=== PATIENT | female | born 1950 | race Two or more races ===

== ENCOUNTER 2018-04-23 16:57 | Inpatient (IN) | payer MEDICARE, OTHER ==
[~2018-04-23] VITALS: Ht 160 cm; Wt 83.5 kg
[~2018-04-23 16:57] MED LIST: ASPI-1159 PO; DAPA5TAB PO; FENO135C4 PO; FERR-63 PO; FLUO-124 PO; FOLI-43 PO; FURO-151 PO; LIP40 PO; MELO-106 PO; METF1000 PO; METH2.5T PO; NAPR-681 PO; PROT40 PO; ZINC50TA62 PO
[2018-04-23] MEDS ORDERED: SODIUM CHLORIDE 0.9% 1,000 ML IV ONE (17:19)
[2018-04-23] MEDS ORDERED: ACETAMINOPHEN 325MG TABLET PO STA (17:19)
[2018-04-23 19:36] LABS: HEMATOCRIT. 31.6 % (36.0-48.0); HEMOGLOBIN. 10.2 g/dL (12.0-16.0); MEAN CORPUSCULAR HEMOGLOBIN 28.7 pg (28.0-32.0); MEAN CORPUSCULAR VOLUME 88.6 fL (81.0-99.0); MEAN PLATELET VOLUME 7.9 fl (7.4-10.4); PLATELET 288 x1000/uL (130-400); RED BLOOD CELL COUNT 3.56 mill/uL (4.2-5.4); RED CELL DISTRIBUTION WIDTH 16.8 % (11.6-14.6)
[2018-04-23 19:42] LABS: CHLORIDE 103 mEq/L (98-107); INR 1.1; PROTHROMBIN TIME 10.7 sec (9.1-11.1)
[2018-04-23] MEDS ORDERED: VANCOMYCIN 1 G PREMIX 200 ML IV ONE (20:00)
[2018-04-23] MEDS ORDERED: SODIUM CHLORIDE 0.9% 1000ML BAG (SEPSIS BOLUS) IV ONE (20:00)
[2018-04-23] MEDS ORDERED: DEXTROSE 50% WATER 50ML SYRINGE IV ONE (20:00)
[2018-04-23] MEDS ORDERED: PIPERACILLIN/TAZ 3.375G PREMIX 50 ML IV ONE (20:00)
[2018-04-23 20:37] LABS: PLATELET ESTIMATE NORMAL
[2018-04-23 21:24] LABS: CLARITY URINE CLEAR (CLEAR); COLOR URINE YELLOW (YELLOW); KETONES URINE NEGATIVE (NEGATIVE); LEUKOCYTE ESTERASE URINE TRACE (NEGATIVE); NITRITE URINE POSITIVE (NEGATIVE); OCCULT BLOOD URINE NEGATIVE (NEGATIVE); PROTEIN URINE NEGATIVE (NEGATIVE); UROBILINOGEN URINE 0.2 E.U./dL (0.2-1.0)
[2018-04-23 23:37] VITALS: BP 131/70
[2018-04-24] VITALS (11 sets, daily range): BP systolic 114–164; BP diastolic 18–81
[2018-04-24] MEDS ORDERED: CLONIDINE 0.1MG TABLET PO PRN (00:45)
[2018-04-24] MEDS ORDERED: ONDANSETRON HCL 4MG/2ML INJ IV PRN (00:45)
[2018-04-24] MEDS ORDERED: MAGNESIUM/ALUMINUM HYDROXIDE/SIMETHICONE 30ML UDC PO PRN (00:45)
[2018-04-24] MEDS ORDERED: DEXTROSE 50% WATER 50ML SYRINGE IV PRN (01:00)
[2018-04-24] MEDS: LORAZEPAM 0.5MG TABLET PO PRN (01:25)
[2018-04-24] MEDS: ACETAMINOPHEN 325MG TABLET PO PRN ×2 (01:26→16:40)
[2018-04-24] MEDS ORDERED: NON FORMULARY PATIENT HOME MED EA XX SCH (02:15)
[2018-04-24] MEDS ORDERED: LEVOFLOXACIN 500MG PREMIX 100 ML IV SCH (02:15)
[2018-04-24] MEDS ORDERED: DILTIAZEM HCL 5MG/ML 25ML VIAL IV NR (03:00)
[2018-04-24] MEDS: ENOXAPARIN 100MG/ML SYR SUBCUT SCH ×2 (03:14→15:17)
[2018-04-24 03:59] LABS: CHLORIDE 108 mEq/L (98-107)
[2018-04-24 04:04] LABS: HEMATOCRIT. 29.5 % (36.0-48.0); HEMOGLOBIN. 9.7 g/dL (12.0-16.0); MEAN CORPUSCULAR HEMOGLOBIN 29.1 pg (28.0-32.0); MEAN CORPUSCULAR VOLUME 88.2 fL (81.0-99.0); MEAN PLATELET VOLUME 7.9 fl (7.4-10.4); PLATELET 243 x1000/uL (130-400); RED BLOOD CELL COUNT 3.34 mill/uL (4.2-5.4)
[2018-04-24 04:06] LABS: CREATINE KINASE 172 IU/L (26-192); CREATINE KINASE MB FRACTION 1.6 ng/mL (0.5-3.6)
[2018-04-24] MEDS: LEVOFLOXACIN 500MG PREMIX 100 ML IV SCH (04:17)
[2018-04-24] MEDS: SODIUM CHLORIDE 0.9% INJ 3ML FLUSH IVF SCH ×3 (06:51→21:17)
[2018-04-24] MEDS: BLOOD SUGAR DIAGNOSTIC STRIP TEST SCH ×4 (07:30→21:18)
[2018-04-24] MEDS: ASPIRIN 81MG EC TABLET PO SCH (09:00)
[2018-04-24] MEDS: FERROUS SULFATE 325MG TABLET PO SCH (09:00)
[2018-04-24] MEDS: METFORMIN HCL 500MG TABLET PO SCH ×2 (09:00→17:56)
[2018-04-24] MEDS: ATORVASTATIN CALCIUM 40MG TABLET PO SCH (09:01)
[2018-04-24] MEDS: INSULIN LISPRO 100 UNITS/ML SUBCUT SCH ×4 (09:01→17:50)
[2018-04-24] MEDS ORDERED: GENTAMICIN SULFATE 130 MG in SODIUM CHLORIDE 0.9% 100 ML IV SCH (12:00)
[2018-04-24 14:03] LABS: PLATELET ESTIMATE NORMAL
[2018-04-24] MEDS ORDERED: IOHEXOL-350 100 ML BOTTLE ONE (14:35)
[2018-04-24] MEDS: MORPHINE SULFATE 4 MG/ML CPJ (NOT FOR IM USE) IV PRN (15:59)
[2018-04-24] MEDS: IPRATROPIUM BROMIDE (0.02%) 0.5MG/2.5ML NEB HHN SCH ×2 (21:03→21:05)
[2018-04-25] VITALS (11 sets, daily range): BP systolic 127–180; BP diastolic 60–88
[2018-04-25] MEDS: IPRATROPIUM BROMIDE (0.02%) 0.5MG/2.5ML NEB HHN SCH ×3 (01:30→07:41)
[2018-04-25] MEDS: MORPHINE SULFATE 4 MG/ML CPJ (NOT FOR IM USE) IV PRN (01:57)
[2018-04-25] MEDS: ENOXAPARIN 100MG/ML SYR SUBCUT SCH ×2 (02:03→14:16)
[2018-04-25] MEDS: LEVOFLOXACIN 500MG PREMIX 100 ML IV SCH (04:52)
[2018-04-25] MEDS: BLOOD SUGAR DIAGNOSTIC STRIP TEST SCH ×4 (07:38→21:10)
[2018-04-25] MEDS: INSULIN LISPRO 100 UNITS/ML SUBCUT SCH ×4 (08:00→21:00)
[2018-04-25] MEDS: FERROUS SULFATE 325MG TABLET PO SCH (08:10)
[2018-04-25] MEDS: ASPIRIN 81MG EC TABLET PO SCH (08:10)
[2018-04-25] MEDS: METFORMIN HCL 500MG TABLET PO SCH ×2 (08:10→17:58)
[2018-04-25] MEDS: ATORVASTATIN CALCIUM 40MG TABLET PO SCH (08:10)
[2018-04-25] MEDS ORDERED: GENTAMICIN SULFATE 160 MG in SODIUM CHLORIDE 0.9% 100 ML IV SCH (12:00)
[2018-04-25] MEDS: SODIUM CHLORIDE 0.9% INJ 3ML FLUSH IVF SCH ×2 (14:17→21:12)
[2018-04-25] MEDS: ACETAMINOPHEN 325MG TABLET PO PRN (14:28)
[2018-04-25] MEDS: LORAZEPAM 0.5MG TABLET PO PRN ×2 (14:28→21:10)
[2018-04-25 15:54] LABS: HEMATOCRIT 29.6 % (36.0-48.0); HEMOGLOBIN 9.7 g/dL (12.0-16.0); MEAN CORPUSCULAR HEMOGLOBIN 29.1 pg (28.0-32.0); MEAN CORPUSCULAR VOLUME 88.6 fL (81.0-99.0); PLATELET 258 x1000/uL (130-400); RED BLOOD CELL COUNT 3.34 mill/uL (4.2-5.4); RED CELL DISTRIBUTION WIDTH 17.1 % (11.6-14.6)
[2018-04-25 16:07] LABS: CHLORIDE 105 mEq/L (98-107)
[2018-04-25] MEDS: METOPROLOL TARTRATE 25MG TABLET PO SCH (21:11)
[2018-04-26] VITALS (13 sets, daily range): BP systolic 127–161; BP diastolic 30–111
[2018-04-26] MEDS: ENOXAPARIN 100MG/ML SYR SUBCUT SCH ×2 (02:05→16:41)
[2018-04-26] MEDS: LORAZEPAM 0.5MG TABLET PO PRN (02:05)
[2018-04-26] MEDS: LEVOFLOXACIN 500MG PREMIX 100 ML IV SCH (03:37)
[2018-04-26] MEDS: SODIUM CHLORIDE 0.9% INJ 3ML FLUSH IVF SCH ×3 (05:18→21:00)
[2018-04-26 06:20] LABS: HEMATOCRIT 29.3 % (36.0-48.0); HEMOGLOBIN 9.3 g/dL (12.0-16.0); MEAN CORPUSCULAR HEMOGLOBIN 28.2 pg (28.0-32.0); MEAN CORPUSCULAR VOLUME 88.8 fL (81.0-99.0); PLATELET 289 x1000/uL (130-400); RED CELL DISTRIBUTION WIDTH 17.2 % (11.6-14.6)
[2018-04-26 06:37] LABS: CHLORIDE 104 mEq/L (98-107)
[2018-04-26] MEDS: BLOOD SUGAR DIAGNOSTIC STRIP TEST SCH ×4 (07:27→21:00)
[2018-04-26] MEDS: INSULIN LISPRO 100 UNITS/ML SUBCUT SCH ×4 (08:00→21:00)
[2018-04-26] MEDS: ATORVASTATIN CALCIUM 40MG TABLET PO SCH (08:39)
[2018-04-26] MEDS: FERROUS SULFATE 325MG TABLET PO SCH (08:39)
[2018-04-26] MEDS: METOPROLOL TARTRATE 25MG TABLET PO SCH (08:40)
[2018-04-26] MEDS: ASPIRIN 81MG EC TABLET PO SCH (08:40)
[2018-04-26] MEDS ORDERED: AMLODIPINE 5MG TABLET PO SCH (09:00)
[2018-04-26] MEDS ORDERED: METOPROLOL TARTRATE 25MG TABLET PO NR (09:15)
[2018-04-26] MEDS ORDERED: LACTULOSE 20G/30ML UDC PO NR (11:15)
[2018-04-26] MEDS ORDERED: BISACODYL 10MG SUPP PR NR (11:15)
[2018-04-26] MEDS ORDERED: BISACODYL 10MG SUPP PR PRN (11:15)
[2018-04-26] MEDS: IPRATROPIUM BROMIDE (0.02%) 0.5MG/2.5ML NEB HHN SCH (20:02)
[2018-04-26 20:31] LABS: HEMATOCRIT. 31.2 % (36.0-48.0); HEMOGLOBIN. 9.9 g/dL (12.0-16.0); MEAN CORPUSCULAR HEMOGLOBIN 28.3 pg (28.0-32.0); MEAN CORPUSCULAR VOLUME 89.6 fL (81.0-99.0); PLATELET 270 x1000/uL (130-400); RED BLOOD CELL COUNT 3.49 mill/uL (4.2-5.4); RED CELL DISTRIBUTION WIDTH 17.4 % (11.6-14.6)
[2018-04-26] MEDS ORDERED: METO25TA6 PO (20:33)
[2018-04-26] MEDS ORDERED: METOPROLOL TARTRATE 50MG TABLET PO SCH (21:00)
[2018-04-26 21:24] LABS: PLATELET ESTIMATE NORMAL
== END 2018-04-26 21:26 | disposition home or self-care (01) | DRG 871 ==
LOC: ER 16:57 → 5EST 21:36 → EDBEDREQ 21:38 → EDBEDREQTM 21:38 → ENRESERV 21:46
PROVIDERS: ADMIT Internal Medicine; ATTEND Internal Medicine
DX: A41.51 Sepsis due to Escherichia coli [E. coli] (principal); E43 Unspecified severe protein-calorie malnutrition; N39.0 Urinary tract infection, site not specified; E11.649 Type 2 diabetes mellitus with hypoglycemia without coma; E66.9 Obesity, unspecified; E78.5 Hyperlipidemia, unspecified; G90.8 Other disorders of autonomic nervous system; E86.0 Dehydration; I10 Essential (primary) hypertension; M06.9 Rheumatoid arthritis, unspecified; D64.9 Anemia, unspecified; E78.00 Pure hypercholesterolemia, unspecified; F32.9 Major depressive disorder, single episode, unspecified; M19.90 Unspecified osteoarthritis, unspecified site; Z79.82 Long term (current) use of aspirin; Z79.84 Long term (current) use of oral hypoglycemic drugs; Z88.0 Allergy status to penicillin; Z79.899 Other long term (current) drug therapy; Z68.32 Body mass index [BMI] 32.0-32.9, adult; Z90.49 Acquired absence of other specified parts of digestive tract
CPT/HCPCS: 36415; 71045; 71275; 74176; 80048; 82550; 82553; 82962; 83036; 83605; 84145; 84484; 85007; 85027; 87077; 87186; 93005; 93306; 94640; 96365; 97162; 99291; J1580; J1650; J1815; J1956; J2270; J2543; J3370; J3490; J7030; J7050; Q9967

== ENCOUNTER 2024-01-07 23:06 | Emergency (ER) | payer MEDICARE ==
[~2024-01-07] VITALS: Ht 162.6 cm; Wt 73.0 kg
[~2024-01-07 23:06] MED LIST changes: -ASPI-1159 PO; +ASPI-1497 PO; -FLUO-124 PO; +FLUO20CA39 PO; -METH2.5T PO; +METO25TA6 PO
[2024-01-07 23:09] VITALS: TEMP 97.8; O2SAT 98
[2024-01-08 00:33] LABS: CHLORIDE 113 mEq/L (98-107); POTASSIUM 4.2 mEq/L (3.5-5.1); SODIUM 142 mEq/L (136-145)
[2024-01-08 00:34] LABS: BASOPHILS % 0.5 % (0.0-2.0); CALCIUM 8.9 mg/dL (8.7-10.4); CARBON DIOXIDE 21 mEq/L (21-32); EOSINOPHILS % 1.4 % (0.0-5.0); HEMATOCRIT. 26.8 % (36.0-48.0); HEMOGLOBIN. 8.4 g/dL (12.0-16.0); LYMPHOCYTES % 16.8 % (20.0-50.0); MEAN CORPUSCULAR HEMOGLOBIN 28.3 pg (28.0-32.0); MEAN CORPUSCULAR HGB CONC 31.5 g/dL (31.0-37.0); MEAN CORPUSCULAR VOLUME 89.8 fL (81.0-99.0); MEAN PLATELET VOLUME 7.6 fl (7.4-10.4); MONOCYTES % 6.4 % (2.0-8.0); NEUTROPHILS % 74.9 % (40.0-76.0); PLATELET 299 x1000/uL (130-400); RED BLOOD CELL COUNT 2.98 mill/uL (4.2-5.4); WHITE BLOOD COUNT 6.3 x1000/uL (4.5-11.0)
[2024-01-08 00:39] LABS: CREATININE 1.3 mg/dL (0.6-1.0); GLUCOSE 304 mg/dL (70-105)
[2024-01-08 00:40] LABS: UREA NITROGEN BLOOD 14 mg/dL (9-23)
[2024-01-08 00:41] LABS: ALANINE AMINOTRANSFERASE 10 IU/L (10-49); ALBUMIN 3.8 g/dL (3.2-4.8); ASPARTATE AMINOTRANSFERASE 17 IU/L (<34)
[2024-01-08 00:42] LABS: BILIRUBIN DIRECT 0.1 mg/dL (<=3.0); BILIRUBIN TOTAL 0.3 mg/dL (0.1-1.0)
[2024-01-08] MEDS: SODIUM CHLORIDE 0.9% 1000ML BAG (SEPSIS BOLUS) IV ONE (00:53)
[2024-01-08] MEDS: PIPERACILLIN/TAZO 3.375G/50ML 50 ML IV ONE (00:53)
[2024-01-08 01:19] LABS: TROPONIN I HIGH SENSITIVITY 4 ng/L (3.0-34)
[2024-01-08 01:39] LABS: PROTHROMBIN TIME 11.2 sec (9.6-11.0)
[2024-01-08 02:00] LABS: BG BASE EXCESS -7.1 mmol/L (-2.0-2.0); BG CARBOXYHEMOGLOBIN 0.3 % (0.5-1.5); BG FRACTION INSPIRED OXYGEN 21; BG HCO3 ACT 18.5 mmol/L (22.0-26.0); BG METHEMOGLOBIN 0.3 % (0.0-1.5); BG OXYHEMOGLOBIN 94.4 % (94.0-97.0); BG PCO2 37.8 mmHg (35.0-45.0); BG PH 7.308 (7.350-7.450); BG PO2 83.3 mmHg (75.0-100.0); BG SAMPLE SITE RIGHT BRACHIAL; BG TOTAL HEMOGLOBIN 9.9 g/dL (12.0-18.0); BG VENT MODE ROOM AIR
[2024-01-08] MEDS: VANCOMYCIN 1G PREMIX 200 ML IV ONE (02:02)
[2024-01-08 03:12] LABS: TROPONIN I HIGH SENSITIVITY 5 ng/L (3.0-34)
[2024-01-08 04:15] LABS: CLARITY URINE CLEAR (CLEAR); COLOR URINE YELLOW (YELLOW); GLUCOSE URINE 2+ (NEGATIVE); KETONES URINE NEGATIVE (NEGATIVE); LEUKOCYTE ESTERASE URINE NEGATIVE (NEGATIVE); NITRITE URINE NEGATIVE (NEGATIVE); OCCULT BLOOD URINE NEGATIVE (NEGATIVE); PH URINE 6.5 (4.5-8.0); PROTEIN URINE TRACE (NEGATIVE); SPECIFIC GRAVITY URINE 1.015 (1.005-1.030); UROBILINOGEN URINE 0.2 E.U./dL (0.2-1.0)
[2024-01-08 07:11] LABS: RBC URINE 0-2 /hpf (0-2); WBC URINE 0-2 /hpf (0-2)
[2024-01-08 07:12] LABS: BACTERIA URINE NONE SEEN; SQUAMOUS EPITHELIAL CELL URINE FEW /lpf (RARE/1+)
[2024-01-08 16:33] VITALS: BP 157/69; PULSE 83; RESP 13
== END 2024-01-08 16:40 | disposition left against medical advice (07) ==
LOC: ER 23:25 → CANBEDREQ 01-08 16:18 → ER 01-08 16:40
DX: I95.9 Hypotension, unspecified (principal); R41.82 Altered mental status, unspecified; E11.9 Type 2 diabetes mellitus without complications; E78.00 Pure hypercholesterolemia, unspecified; I10 Essential (primary) hypertension; Z79.899 Other long term (current) drug therapy
CPT/HCPCS: 99291; 36415 ×2; 70450; 96365; 96367; 80076; 80048; 81003; 83880; 83605; 85025; 85610; 86850; 86900; 86901; 87040; 84484; 84145; 71045; 74176; 82805; 82375; 36600; J2543; J3370; J7030